=== PATIENT | male | born 1955 | race Caucasian/White ===

== ENCOUNTER 2016-09-20 18:42 | Observation (INO) | payer BC ==
[~2016-09-20] VITALS: Ht 188 cm; Wt 68.0 kg
[~2016-09-20 18:42] MED LIST: BACTRIM DS1 TAB PO; DILAUDID4 MG PO; KEFLEX500 MG PO; NAPROSYN500 MG PO; NAPROXEN375 MG PO; NO; [UNRECOGNIZED DRUG - OTHER] PO
[2016-09-20 19:21] LABS: HEMATOCRIT 43.2 % (39.0-50.0); HEMOGLOBIN 14.5 g/dl (14.0-18.0); IMMATURE GRANULOCYTES 0.2 % (0.0-1.0); MEAN CELL VOLUME 93.9 fL CALC (80.0-100.0); MEAN CORPUSCULAR HGB 31.5 pG CALC (26.0-32.0); MEAN CORPUSCULAR HGB CONC 33.6 g/L CALC (32.0-36.0); NEUT# 5.65 thou/uL (1.82-7.42); RED BLOOD COUNT 4.6 mill/uL (4.70-6.10); RED CELL DISTRI WIDTH 13.1 % (11.5-15.5)
[2016-09-20 19:28] LABS: ALBUMIN 4.6 g/dL (3.2-5.0); ALKALINE PHOSPHATASE 80 u/l (38-126); ANION GAP 14 (6-22 (CALC)); BILIRUBIN, TOTAL 0.4 mg/dL (0.0-1.4); BUN 21 mg/dL (8-23); BUN/CREATININE RATIO 25 (12-20 (CALC)); CALCIUM 9.6 mg/dL (8.4-10.2); CARBON DIOXIDE 31 mmol/l (22-30); CHLORIDE 103 mmol/l (95-108); CREATININE 0.9 mg/dL (0.7-1.3); GFR > 60 ML/MIN (>=60 (CALC)); GFR FOR AFR.AMER. > 60 ML/MIN (>=60 (CALC)); GLUCOSE 86 mg/dL (82-115); POTASSIUM 4.1 mmol/l (3.5-5.1); SGOT/AST 23 u/l (19-48); SGPT/ALT 34 u/l (11-66); SODIUM 144 mmol/l (137-146); TOTAL PROTEIN 7.6 g/dL (6.3-8.2)
[2016-09-20 19:40] LABS: MYOGLOBIN 32 ng/mL (0 - 121)
[2016-09-20 20:37] LABS: URINE BILIRUBIN - DIPSTICK NEGATIVE (NEGATIVE); URINE BLOOD DIPSTICK SMALL (NEGATIVE); URINE CLARITY CLEAR; URINE COLOR YELLOW; URINE GLUCOSE - DIPSTICK NEGATIVE (NEGATIVE); URINE KETONE NEGATIVE (NEGATIVE); URINE LEUK ESTERASE NEGATIVE (NEGATIVE); URINE NITRITE - DIPSTICK NEGATIVE (Negative); URINE PROTEIN - DIPSTICK NEGATIVE (NEG-TRACE); URINE SPECIFIC GRAVITY 1.015; URINE UROBILINOGEN - DIPSTICK 0.2 E.U./dL (0.2)
[2016-09-20 21:30] LABS: URINE SQUAMOUS EPITHELIAL CELL FEW EPI/hpf (0-FEW)
[2016-09-20 22:30] VITALS: BP 136/77
[2016-09-21 03:20] VITALS: BP 95/54
[2016-09-21 09:18] VITALS: BP 138/81
== END 2016-09-21 13:25 | disposition home or self-care (01) | DRG 313 ==
LOC: ENPENDDIS → ED 18:42 → ED-I 20:10 → ED 21:24 → MS2 21:25
PROVIDERS: Emergency Medicine; ADMIT Internal Medicine; ATTEND Internal Medicine
DX: R07.89 Other chest pain (principal); F17.210 Nicotine dependence, cigarettes, uncomplicated; G44.89 Other headache syndrome; Z82.49 Family history of ischemic heart disease and other diseases of the circulatory system
CPT/HCPCS: G0378

== ENCOUNTER → 2018-08-17 | Outpatient (REF) | payer MEDICARE ==
[2018-08-17 14:38] LABS: CREATININE 0.8 mg/dL (0.7-1.3)
== END | disposition home or self-care (01) ==
LOC: CT 13:51
PROVIDERS: ATTEND Otolaryngology
DX: C07 Malignant neoplasm of parotid gland (principal); N17.8 Other acute kidney failure

== ENCOUNTER 2019-04-15 08:03 | Emergency (ER) | payer MEDICARE ==
[~2019-04-15] VITALS: Ht 188 cm; Wt 60.6 kg
[2019-04-15] MEDS ORDERED: AMOXICILLIN/CL875 MG PO (08:26)
[2019-04-15] MEDS ORDERED: AMOCLAN400 MG/5 M PO (08:41)
[2019-04-15 08:45] VITALS: BP 119/86
== END 2019-04-15 08:43 | disposition home or self-care (01) ==
LOC: ED 08:03
DX: L03.114 Cellulitis of left upper limb (principal); S60.512A Abrasion of left hand, initial encounter; W54.8XXA Other contact with dog, initial encounter

== ENCOUNTER 2019-04-16 09:09 | Emergency (ER) | payer MEDICARE ==
[~2019-04-16] VITALS: Ht 188 cm; Wt 70.0 kg
[~2019-04-16 09:09] MED LIST changes: +AMOCLAN400 MG/5 M PO; +AMOXICILLIN/CL875 MG PO
[2019-04-16 09:48] VITALS: BP 122/68
== END 2019-04-16 09:52 | disposition home or self-care (01) ==
LOC: ED 09:09
DX: S60.512D Abrasion of left hand, subsequent encounter (principal); W54.8XXD Other contact with dog, subsequent encounter

== ENCOUNTER 2019-05-31 10:50 | Observation (INO) | payer MEDICARE ==
[~2019-05-31] VITALS: Ht 185.4 cm; Wt 63.0 kg
[~2019-05-31 10:50] MED LIST changes: +AMOX/K CLAV875 M1 PO; +AMOXICILLIN PO; +CLA PO
--- NOTE | 2019-05-31 11:18 | NUR ---
PATIENT TO ROM VIA WHEELCHAIR AND PRACTIONER NOTIFIED OF PATIENT STATUS
[2019-05-31 11:40] LABS: HEMATOCRIT 38.4 % (39.0-50.0); HEMOGLOBIN 12.6 g/dl (14.0-18.0); IMMATURE GRANULOCYTES 0.3 % (0.0-5.0); MEAN CORPUSCULAR HGB 33.7 pG CALC (26.0-32.0); MEAN CORPUSCULAR HGB CONC 32.8 g/L CALC (32.0-36.0); NEUT# 7.93 thou/uL (1.82-7.42); RED BLOOD COUNT 3.74 mill/uL (4.70-6.10)
[2019-05-31 11:44] LABS: MEAN CELL VOLUME 102.7 fL CALC (80.0-100.0)
--- NOTE | 2019-05-31 12:00 | NUR ---
PT RESTING COMFORTABLY ON O2@2LPM VIA NC, RESP EVEN AND UNLABORED AT THIS TIME. DRY COUGH NOTED. AT BEDSIDE. UPDATED ON POC AND WAIT TIME.
[2019-05-31 12:57] LABS: ALBUMIN 4.2 g/dL (3.2-5.0); ALKALINE PHOSPHATASE 81 u/l (38-126); BUN 16 mg/dL (8-23); BUN/CREATININE RATIO 20 (12-20 (CALC)); CHLORIDE 104 mmol/l (95-108); CREATININE 0.8 mg/dL (0.7-1.3); GFR > 60 ML/MIN (>=60 (CALC)); GFR FOR AFR.AMER. > 60 ML/MIN (>=60 (CALC)); POTASSIUM 4.1 mmol/l (3.5-5.1); SGOT/AST 16 u/l (19-48); SODIUM 140 mmol/l (137-146); TOTAL PROTEIN 7.4 g/dL (6.3-8.2)
[2019-05-31 13:01] LABS: ANION GAP 17 (6-22 (CALC)); BILIRUBIN, TOTAL 0.7 mg/dL (0.0-1.4); CARBON DIOXIDE 23 mmol/l (22-30)
--- NOTE | 2019-05-31 13:18 | NUR ---
DR DAUGHERTY AT BEDSIDE TO DISCUSS CLINICAL FINDINGS AND ADMIT. PT IN NO DISTRESS, STATES "I FEEL SO MUCH BETTER".
--- NOTE | 2019-05-31 13:58 | NUR ---
INITIATED IV FLUIDS AND ABT ORDERED. PT AWARE OF ADMIT AND AGREEABLE. RESP EVEN AND UNLABORED AT THIS TIME. O2@2LPM VIA NC, O2 SAT 98%
[2019-05-31 14:00] LABS: URINE BLOOD DIPSTICK LARGE (NEGATIVE); URINE GLUCOSE - DIPSTICK NEGATIVE (NEGATIVE); URINE KETONE 15 mg/dL (NEGATIVE); URINE LEUK ESTERASE NEGATIVE (NEGATIVE); URINE NITRITE - DIPSTICK NEGATIVE (Negative); URINE PH 5.5 (4.5-8.0); URINE PROTEIN - DIPSTICK TRACE mg/dL (NEG-TRACE); URINE SPECIFIC GRAVITY 1.025
[2019-05-31 14:01] LABS: URINE BILIRUBIN - DIPSTICK SMALL (NEGATIVE); URINE COLOR DK. YELLOW; URINE EPITHELIAL CELLS FEW EPI/hpf (0-FEW)
--- NOTE | 2019-05-31 14:38 | NUR ---
PT TOELRATING IV FLUIDS WELL. PT RESTING COMFORTABLY. CONSUMED 75% OF LUNCH TRAY
--- NOTE | 2019-05-31 15:30 | NUR ---
Reassessment of patient completed. No distress noted. Call altamirano within reach. Denies any needs at this time
--- NOTE | 2019-05-31 16:08 | NUR ---
PT ARRIVED TO MED/SURG ROOM 273 IN STABLE CONDITION VIA WHEELCHAIR ACCOMPANIED BY CATHERINE AGUILLON;PT AMBULATED WITH A STEADY GAIT TO STANDING SCALE AND BEDSIDE;WT AND VS OBTAINED BY FORD BATES;PT A&O X3, ORIENTED TO ROOM AND CALL LIGHT SYSTEM;PT REPORTS SOB AND FLU LIKE SYMPTOMS FOR THE PAST 10 DAYS;PT DENIES ANY CURRENT PAIN OR DISCOMFORTS,PAIN SCALE AND REPORTING EDUCATED;RESPIRATIONS EVEN AND UNLABORED,SHALLOW ON O2 @ 2L VIA NC-PT IS NOT HOME DEPENDENT;DIMINISHED LUNG SOUNDS,NON-PRODUCTIVE COUGH NOTED AT TIMES;ABDOMEN SOFT ON PALPATION AND ACTIVE IN ALL 4 QUADRANTS,LAST BM 05/31/19;STRONG PEDAL PULSES;SKIN INTACT BUT FRAGILE;#18G TO RAC FLUSHED AND PATENT,NS TO BE STARTED @ 100ML/HR PER ORDER;TELE MONITORING IN PLACE;FALL AND ALLERGY BAND APPLIED TO LEFT ARM;PT DENIES ANY ADDITIONAL NEEDS AT THIS TIME AND IS ENCOURAGED TO CALL FOR ASSISTANCE IF NEEDED;FALL PRECAUTIONS IN PLACE WITH BED IN THE LOWEST POSITION AND CALL LIGHT IN REACH;WILL CONTINUE TO MONITOR
[2019-05-31 16:15] VITALS: BP 153/86
--- NOTE | 2019-05-31 16:20 | NUR ---
Admission Note Report Given to: sbar printed to floor Transported by: Wheelchair x Stretcher Transported with: x Nurse Transporter x Patent IV O2 x Body Worker
--- NOTE | 2019-05-31 17:57 | NUR ---
PT RESTING IN BED EATING DINNER;RESPIRATIONS EVEN AND UNLABORED ON O2 @ 2L VIA NC;PT DEMONSTRATING USAGE OF I.S. 10X PER HOUR;PT DENIES ANY PAIN OR NEEDS;TELE MONITORING IN PLACE;IV SITE INFUSING NS PER ORDER;ENCOURAGED TO CALL FOR ASSISTANCE IF NEEDED;CALL LIGHT IN REACH;WILL CONTINUE TO MONITOR
--- NOTE | 2019-05-31 19:00 | NUR ---
RECEIVED REPORT FROM NURSE RAJEEV, PATIENT SITTING IN BED, WITH SHALLOW, UNLABORED BREATHING, CALL LIGHT AT REACH.
[2019-05-31 19:19] VITALS: BP 134/77
--- NOTE | 2019-05-31 21:00 | NUR ---
PATIENT ALERT AND ORIENTED, AMBULATORY, WITH AN ONGOING IV OF NORMAL SALINE @ 100CC/HR INFUSING WELL ON RAC, REMAINS ON TELE SR WITH IVCD 69 PAC'S, C/O OF PAIN ON MID BACK RELIEVES WITH REPOSITIONING AND AMBULATING, CALL LIGHT AT REACH.
--- NOTE | 2019-05-31 21:52 | NUR ---
SPOKE TO DR. WONG ABOUT PATIENT REQUEST FOR PAIN MEDICATION WITH ORDERS MADE.
--- NOTE | 2019-06-01 00:18 | NUR ---
PATIENT RESTING IN BED WITH EYES CLOSED, EVEN UNLABORED BREATHING AT THIS TIME CALL LIGHT AT REACH.
[2019-06-01 00:20] VITALS: BP 115/63
--- NOTE | 2019-06-01 03:37 | NUR ---
PATIENT APPEARS TO BE SLEEPING WITH EYES CLOSED WITH EVEN UNLABORED BREATHING CALL LIGHT WITHIN REACH.
[2019-06-01 04:30] VITALS: BP 145/72
[2019-06-01 05:06] LABS: HEMATOCRIT 32.9 % (39.0-50.0); IMMATURE GRANULOCYTES 0.7 % (0.0-5.0); MEAN CELL VOLUME 101.9 fL CALC (80.0-100.0); MEAN CORPUSCULAR HGB 34.1 pG CALC (26.0-32.0); MEAN CORPUSCULAR HGB CONC 33.4 g/L CALC (32.0-36.0); NEUT# 7.41 thou/uL (1.82-7.42); RED BLOOD COUNT 3.23 mill/uL (4.70-6.10); RED CELL DISTRI WIDTH 12.4 % (11.5-15.5)
[2019-06-01 05:11] LABS: ANION GAP 13 (6-22 (CALC)); BUN 19 mg/dL (8-23); BUN/CREATININE RATIO 29 (12-20 (CALC)); CARBON DIOXIDE 22 mmol/l (22-30); CHLORIDE 108 mmol/l (95-108); CREATININE 0.7 mg/dL (0.7-1.3); GFR > 60 ML/MIN (>=60 (CALC)); GFR FOR AFR.AMER. > 60 ML/MIN (>=60 (CALC)); MAGNESIUM 1.7 mg/dL (1.6-2.3); POTASSIUM 4.2 mmol/l (3.5-5.1); SODIUM 139 mmol/l (137-146)
--- NOTE | 2019-06-01 06:55 | NUR ---
REPORT RECEIVED FROM CATHERINE GUTHRIE;PT RESTING IN SEMI FOWLERS POSITION TALKING ON THE PHONE;INTRODUCED SELF TO PT AND POC DISCUSSED;RESPIRATIONS APPEAR EVEN AND UNLABORED ON O2 @ 2L VIA NC;PT DENIES ANY CURRENT PAIN OR NEEDS;TELE MONITORING IN PLACE;IV FLUIDS INFUSING WITH EASE PER ORDER;ENCOURAGED PT TO CALL FOR ASSISTANCE IF NEEDED;FALL PRECAUTIONS IN PLACE WITH BED IN THE LOWEST POSITION AND CALL LIGHT IN REACH;WILL CONTINUE TO MONITOR
--- NOTE | 2019-06-01 08:10 | NUR ---
PT RESTING IN SEMI FOWLERS POSITION,A&O X3;VS OBTAINED AND ASSESSMENT COMPLETED;PT DENIES ANY CURRENT PAIN OR DISCOMFORTS,PAIN SCALE AND REPORTING EDUCATED;RESPIRATIONS EVEN AND UNLABORED ON RA,PRN O2 @ 2L AT BEDSIDE;O2 SATS 94% ON RA,DIMINISHED LUNG SOUNDS AND NON-PRODUCTIVE COUGH NOTED;PT INSTRUCTED ON I.S. USE AND DEMONSTRATED UNDERSTANDING,GOAL SET TO 1999; ABDOMEN SOFT ON PALPATION AND ACTIVE IN ALL 4 QUADRANTS;STRONG PEDAL PULSES;SKIN INTACT BUT FRAGILE;TELE MONITORING IN PLACE;#18G TO RAC INFUSING NS @ 100ML/HR,SITE APPEARS HEALTHY AND ABX HUNG AT THIS TIME;PT DENIES ANY ADDITIONAL NEEDS AND IS ENCOURAGED TO CALL FOR ASSISTANCE IF NEEDED;FALL PRECAUTIONS IN PLACE WITH CALL LIGHT IN REACH;WILL CONTINUE TO MONITOR
[2019-06-01 08:11] VITALS: BP 146/88
--- NOTE | 2019-06-01 10:15 | NUR ---
BERLIN,ANRP AT BEDSIDE
[2019-06-01 11:26] VITALS: BP 134/79
--- NOTE | 2019-06-01 11:29 | NUR ---
AT BEDSIDE DISCUSSING POC WITH PATIENT INCLUDING POTENTIAL D/C HOME;MCKENZIE SLADE ALSO AT BEDSIDE.
[2019-06-01] MEDS ORDERED: ZITHROMAX500 MG PO (11:39)
[2019-06-01] MEDS ORDERED: PREDNISONE10 MG PO (11:39)
--- NOTE | 2019-06-01 12:15 | NUR ---
PT RESTING IN SEMI FOWLERS POSITION EATING LUNCH;RESPIRATIONS EVEN AND UNLABORED ON RA;PT DENIES ANY CURRENT PAIN OR DISCOMFORTS;TELE MONITORING IN PLACE;PT UNDERSTANDS PLAN TO D/C HOME;ENCOURAGED TO CALL FOR ASSISTANCE IF NEEDED;CALL LIGHT IN REACH;WILL CONTINUE TO MONITOR
--- NOTE | 2019-06-01 12:40 | NUR ---
ALL DISCHARGE INSTRUCTIONS PROVIDED AT THIS TIME;PT ENCOURAGED TO TAKE MEDICATIONS DIRECTED.RX FOR PREDNISIONE AND ZITHROMAX SENT TO PHARMACY;PT INSTRUCTED TO RETURN TO [facility] IF S/S WORSEN AND FOLLOW UP WITH PCP;PT DENIES ANY ADDITIONAL QUESTIONS OR NEEDS;IV SITE REMOVED WITH CATHETER INTACT AND TELE MONITORING D/C;PT REFUSES WHEELCHAIR FOR D/C HOME;AWAITING SPOUSE FOR TRANSPORTATION HOME.
--- NOTE | 2019-06-01 12:55 | NUR ---
Discharge instructions given. Patient verbalizes understanding of same. Discharged in stable condition via Ambulatory to Home with spouse. All belongings sent with pt. PT AMBULATED WITH A STEADY GAIT TO LOBBY FOR D/C HOME;PT REFUSED WHEELCHAIR FOR DISCHARGE;ACCOMPANIED BY SPOUSE FOR TRANSPORTATION.
== END 2019-06-01 12:55 | disposition home or self-care (01) ==
LOC: ED 10:50 → ED-I 13:30 → ED 14:16 → MS2 14:17
PROVIDERS: Nurse Practitioner Family; ADMIT Internal Medicine; ATTEND Internal Medicine
DX: J44.1 Chronic obstructive pulmonary disease with (acute) exacerbation (principal); J44.0 Chronic obstructive pulmonary disease with (acute) lower respiratory infection; J20.9 Acute bronchitis, unspecified; R09.02 Hypoxemia; C07 Malignant neoplasm of parotid gland; Z85.118 Personal history of other malignant neoplasm of bronchus and lung; Z92.3 Personal history of irradiation; Z92.21 Personal history of antineoplastic chemotherapy; Z87.891 Personal history of nicotine dependence; Z90.2 Acquired absence of lung [part of]
CPT/HCPCS: G0378; J1650

== ENCOUNTER 2022-10-02 17:51 | Inpatient (IN) | payer MEDICARE ==
[~2022-10-02] VITALS: Ht 185.4 cm; Wt 60.6 kg
[~2022-10-02 17:51] MED LIST changes: +PREDNISONE10 MG PO; +ZITHROMAX500 MG PO
--- NOTE | 2022-10-02 18:08 | NUR ---
PT ARRIVED TO ER WITH CC OF SOB, UPON ARRIVAL PATIENT O2 SATING AT 84% ON ROOMAIR. PT DENIES CHEST PAIN, REPORTS BEEN FEELING SICK. AT SIDE, PT SURRENTLY UNDERGOING CANCER TREATMENT AT THE [facility]. PT A/OX4 CALM AND COOPERATIVE. EKG COMPLETED. MD AT BEDSIDE. RT AT BEDSIDE OBTAINING ABG. PT PLACED ON 2LNC O2 SATURTION IMPROVED TO 91%. FALL AND SAFETY PRECAUTIONS IN PLACE. CALL LIGHT WITHIN REACH.
[2022-10-02 18:29] LABS: BASO% 0.3 % (0-3); EOS% 0.6 % (0-8); HEMATOCRIT 44.1 % (39.0-50.0); HEMOGLOBIN 14.6 g/dl (14.0-18.0); IMMATURE GRANULOCYTES 0.1 % (0.0-5.0); LYMPH% 12.1 % (15-41); MEAN CORPUSCULAR HGB 31.5 pG CALC (26.0-32.0); MEAN CORPUSCULAR HGB CONC 33.1 g/dL CAL (32.0-36.0); NEUT# 5.36 thou/uL (1.82-7.42); NEUT% 76.9 % (42-76); RED BLOOD COUNT 4.64 mill/uL (4.70-6.10); RED CELL DISTRI WIDTH 12.9 % (11.5-15.5)
[2022-10-02 18:31] VITALS: BP 160/86
--- NOTE | 2022-10-02 18:36 | NUR ---
PT VURRENTLY RECEIVING BREATHING TREATMENT, VSS, PT TOLERATING THERAPY WELL. SATING AT 94 %
[2022-10-02] MEDS ORDERED: ZITHROMAX250 MG PO (18:46)
[2022-10-02 18:47] LABS: ALBUMIN 3.9 g/dL (3.2-5.0); ALKALINE PHOSPHATASE 65 u/l (38-126); ANION GAP 11 (6-22 (CALC)); BUN 23 mg/dL (8-23); BUN/CREATININE RATIO 27 (12-20 (CALC)); CARBON DIOXIDE 25 mmol/l (22-30); CHLORIDE 104 mmol/l (95-108); CREATININE 0.8 mg/dL (0.7-1.3); GFR FOR AFR.AMER. > 60 ML/MIN (>=60 (CALC)); GFR OTHER RACES > 60 ML/MIN (>=60 (CALC)); SGOT/AST 30 u/l (19-48); SODIUM 136 mmol/l (137-146); TOTAL PROTEIN 7.4 g/dL (6.3-8.2)
[2022-10-02 18:48] LABS: BILIRUBIN, TOTAL 0.7 mg/dL (0.2-1.3)
[2022-10-02 19:00] VITALS: BP 161/95
[2022-10-02 19:30] VITALS: BP 129/103
[2022-10-02 20:08] VITALS: BP 142/76
--- NOTE | 2022-10-02 20:08 | NUR ---
REPORT GIVEN TO EVE. PT W/C TO ROOM 279
--- NOTE | 2022-10-02 20:38 | NUR ---
PT BROUGHT UP FROM ER VIA WHEELCHAIR @195. PT IS A/OX3, AMBULATES WITH STEADY GAIT TO BED. PT STATES THEY ARE CONTINENT OF BOWEL AND BLADDER, ENCOURAGED TO USE CALL LIGHT OR URINAL AT BEDSIDE. PT DENIES ANY PAIN AT THIS TIME. ASSESSMENT COMPLETED, SKIN INTACT, PT O2 SATURATION AT 92% ON ROOM AIR. LUNG SOUNDS ARE DIMINISHED THROUGH OUT WITH SOME COARENESS IN THE ANTERIOR UPPER LOBE ON RT SIDE. IV SITE APPEARS HEALTHY AND INTACT. EDUCATED PT ON PLAN OF CARE, MEDICATIONS SCHEDULE AND BREATHING TREATMENTS. INDICATED UNDERSTANDING. CALL LIGHT WITHIN REACH AND SAFETY PRECAUTIONS IN PLACE.
--- NOTE | 2022-10-03 00:03 | NUR ---
PT LAYING IN BED ON RT SIDE, SLEEPING COMFORTABLY. NO S/S OF DISTRESS AT THIS TIME. CALL LIGHT WITHIN REACH AND SAFETY PRECAUTIONS IN PLACE.
--- NOTE | 2022-10-03 04:00 | NUR ---
PT LAYING IN BED,, SLEEPING COMFORTABLY AT THIS TIME. CALL LIGHT WITHIN REACH AND SAFETY PRECAUTIONS IN PLACE.
[2022-10-03 04:40] VITALS: BP 142/80
[2022-10-03 05:28] LABS: BASO% 0.1 % (0-3); HEMATOCRIT 40.5 % (39.0-50.0); HEMOGLOBIN 13.6 g/dl (14.0-18.0); IMMATURE GRANULOCYTES 0.3 % (0.0-5.0); LYMPH% 2.5 % (15-41); MEAN CELL VOLUME 95.3 fL CALC (80.0-100.0); MEAN CORPUSCULAR HGB CONC 33.6 g/dL CAL (32.0-36.0); MONO% 2.4 % (2-13); NEUT# 8.23 thou/uL (1.82-7.42); NEUT% 94.7 % (42-76); RED BLOOD COUNT 4.25 mill/uL (4.70-6.10); RED CELL DISTRI WIDTH 12.9 % (11.5-15.5)
[2022-10-03 05:47] LABS: ALBUMIN 3.6 g/dL (3.2-5.0); ALKALINE PHOSPHATASE 65 u/l (38-126); ANION GAP 10 (6-22 (CALC)); BILIRUBIN, TOTAL 0.3 mg/dL (0.2-1.3); BUN 18 mg/dL (8-23); BUN/CREATININE RATIO 26 (12-20 (CALC)); CARBON DIOXIDE 29 mmol/l (22-30); CHLORIDE 102 mmol/l (95-108); CREATININE 0.7 mg/dL (0.7-1.3); GFR FOR AFR.AMER. > 60 ML/MIN (>=60 (CALC)); GFR OTHER RACES > 60 ML/MIN (>=60 (CALC)); MAGNESIUM 1.8 mg/dL (1.6-2.3); POTASSIUM 3.9 mmol/l (3.5-5.1); SGOT/AST 24 u/l (19-48); SODIUM 137 mmol/l (137-146); TOTAL PROTEIN 6.5 g/dL (6.3-8.2)
[2022-10-03 07:31] VITALS: BP 174/96
--- NOTE | 2022-10-03 08:00 | NUR ---
PT RESTING IN SEMI FOWLERS POSITION. A/OX3 HARD OF HEARING ASSESSMENT AND VS COMPLETED. HEART RHYHTM NORM. RESPIRAITONS ON 2LNC PT STATES USES FOR COMFORT. IV SITE NOTED NS INFUSING PT DENIES ADDITIONAL NEEDS AT THE TIME ALL SAFETY PRECAUTIONS IN PLACE.
[2022-10-03 08:26] VITALS: BP 150/84
--- NOTE | 2022-10-03 08:30 | NUR ---
PT SBP ELEVATED ABOVE 170. ASKED PT IF PT TAKES ANYTHING AT HOME FOR BLOOD PRESSURE PT DENIED. LESTER WINSTONI INFORMED NEW ORDER IN EMAR. PT BP REASSESSED .
--- NOTE | 2022-10-03 11:57 | NUR ---
PT RESTING IN HIGH FOWLERS POSITION. PT ABX FINISHED. PT LOCKED OFF FLUIDS FOR NOW. PT STATED WOULD LIKE TO GET IN SHOWER AFTER EATING LUNCH. ALL SAFETY PRECAUTIONS IN PLACE.
--- NOTE | 2022-10-03 15:58 | NUR ---
PT RESTING IN HIGH FOWLERS POSITION. PT CONCEREND OF FLUIDS NOT RUNNING PT EDUCATED ON FLUID RATE SLOWER THAN USUAL RATE AND PT EDUCATED THAT PT WAS OFF FLUIDS SO NOT MUCH HAS COME DOWN. PT CONCERENED OF O2 SAT PT SATING ABOVE 92%
[2022-10-03 16:19] VITALS: BP 131/71
[2022-10-03 19:50] VITALS: BP 170/82
--- NOTE | 2022-10-03 20:00 | NUR ---
RECEIVED REPORT FROM DAYSHIFT NURSE. PT SITTING UP ON THE SIDE OF BED AT THIS TIME. A/OX3. PRODUCTIVE COUGH PRESENT. PT DENIES ANY PAIN BUT REQUESTED BREATHING TREATMENT. EDUCATED ON PLAN OF CARE FOR TONIGHT. CALL LIGHT WITHIN REACH AND SAFETY PRECAUTIONS IN PLACE.
--- NOTE | 2022-10-04 00:10 | NUR ---
PT LAYING SUPINE IN BED, RESTING COMFORTABLY. NO S/S OF DISTRESS AT THIS TIME. CALL LIGHT WITHIN REACH AND SAFETY PRECAUTIONS IN PLACE.
[2022-10-04 04:08] VITALS: BP 151/78
--- NOTE | 2022-10-04 04:20 | NUR ---
PT IS LAYING SUPINE IN BED, O2 IN PLACE AT THIS TIME. PT RESTING COMFORTABLY. CALL LIGHT WITHIN REACH AND SAFETY PRECAUTIONS IN PLACE.
[2022-10-04 05:28] LABS: BASO% 0.1 % (0-3); HEMATOCRIT 39.7 % (39.0-50.0); HEMOGLOBIN 13.2 g/dl (14.0-18.0); LYMPH% 4.3 % (15-41); MEAN CELL VOLUME 95.7 fL CALC (80.0-100.0); MEAN CORPUSCULAR HGB 31.8 pG CALC (26.0-32.0); MEAN CORPUSCULAR HGB CONC 33.2 g/dL CAL (32.0-36.0); MONO% 2.9 % (2-13); NEUT# 9.67 thou/uL (1.82-7.42); NEUT% 91.7 % (42-76); RED BLOOD COUNT 4.15 mill/uL (4.70-6.10); RED CELL DISTRI WIDTH 12.9 % (11.5-15.5)
[2022-10-04 05:56] LABS: ALBUMIN 3.6 g/dL (3.2-5.0); ALKALINE PHOSPHATASE 69 u/l (38-126); BUN 30 mg/dL (8-23); BUN/CREATININE RATIO 35 (12-20 (CALC)); CARBON DIOXIDE 27 mmol/l (22-30); CHLORIDE 106 mmol/l (95-108); CREATININE 0.9 mg/dL (0.7-1.3); GFR FOR AFR.AMER. > 60 ML/MIN (>=60 (CALC)); GFR OTHER RACES > 60 ML/MIN (>=60 (CALC)); MAGNESIUM 1.9 mg/dL (1.6-2.3); SGOT/AST 34 u/l (19-48); SODIUM 142 mmol/l (137-146)
[2022-10-04 05:57] LABS: ANION GAP 14 (6-22 (CALC)); BILIRUBIN, TOTAL 0.1 mg/dL (0.2-1.3); POTASSIUM 5.4 mmol/l (3.5-5.1)
[2022-10-04 06:53] VITALS: BP 170/73
--- NOTE | 2022-10-04 08:00 | NUR ---
GOT REPORT FROM [employer] SUPERVISOR NURSE. PATIENT ASSESSED, AOX3. PATIENT DENIES ANY DISTRESS OR DISCOMFORT. PATIENT HAS FALL PRECAUTIONS IN PLACE AND HAS CALL LIGHT AND BEDSIDE TABLE WITH IN REACH. ADVISED TO CALL IF NEEDING ANYTHING. PATIENT VERBALIZED UNDERSTANDING.
[2022-10-04 09:24] VITALS: BP 143/78
--- NOTE | 2022-10-04 11:13 | NUR ---
PRELIMINARY CULTURE RESULTS CALLED TO KIEL BATISTA. NO NEW ORDERS AT THIS TIME.
--- NOTE | 2022-10-04 12:00 | NUR ---
PATIENT IN BED WATCHING TV. DENIES AND ISSUES. FALL PRECAUTIONS ARE STILL IN PLACE. CALL LIGHT AND BEDSIDE [place]ALE WITH IN REACH. ADVISED TO CALL IF NEEDING ANYTHING. PATIENT VERBALIZED UNDERSTANDING.
[2022-10-04 15:35] VITALS: BP 139/68
[2022-10-04 18:52] VITALS: BP 154/65
[2022-10-04 19:47] VITALS: BP 154/65
--- NOTE | 2022-10-04 23:25 | NUR ---
pt alert and oriented. sitting up in bed watching tv. 02 via n/c. c/o constipation. MOM given at hs. call light in reach.
[2022-10-05 06:44] VITALS: BP 147/118
--- NOTE | 2022-10-05 09:00 | NUR ---
PATIENT WAS WASHING UP WHEN NURSE ENTER ROOM. PATIENT STATED FEELING BETTER TODAY. PATIENT HAVING A PRODUCTIVE COUGH SMALL THICK CLEAR SPUTUM. PATIENT ON 2L NC. PATIENT RETURNED TO BED. ASSESSMENT DONE. CALL LIGHT WITHIN REACH. WILL CONTINUE TO MONITOR.
[2022-10-05 10:09] LABS: ALBUMIN 3.9 g/dL (3.2-5.0); ALKALINE PHOSPHATASE 75 u/l (38-126); ANION GAP 12 (6-22 (CALC)); BILIRUBIN, TOTAL 0.2 mg/dL (0.2-1.3); BUN 29 mg/dL (8-23); BUN/CREATININE RATIO 36 (12-20 (CALC)); CARBON DIOXIDE 29 mmol/l (22-30); CHLORIDE 104 mmol/l (95-108); CREATININE 0.8 mg/dL (0.7-1.3); GFR FOR AFR.AMER. > 60 ML/MIN (>=60 (CALC)); GFR OTHER RACES > 60 ML/MIN (>=60 (CALC)); MAGNESIUM 2.1 mg/dL (1.6-2.3); POTASSIUM 4.4 mmol/l (3.5-5.1); SGOT/AST 97 u/l (19-48); SODIUM 140 mmol/l (137-146); TOTAL PROTEIN 6.9 g/dL (6.3-8.2)
[2022-10-05 10:37] LABS: BASO% 0.1 % (0-3); HEMATOCRIT 43.1 % (39.0-50.0); HEMOGLOBIN 13.6 g/dl (14.0-18.0); IMMATURE GRANULOCYTES 0.5 % (0.0-5.0); LYMPH% 4.6 % (15-41); MEAN CELL VOLUME 98.9 fL CALC (80.0-100.0); MEAN CORPUSCULAR HGB 31.2 pG CALC (26.0-32.0); MEAN CORPUSCULAR HGB CONC 31.6 g/dL CAL (32.0-36.0); MONO% 2.5 % (2-13); NEUT# 11.49 thou/uL (1.82-7.42); NEUT% 92.3 % (42-76); RED BLOOD COUNT 4.36 mill/uL (4.70-6.10); RED CELL DISTRI WIDTH 13.4 % (11.5-15.5)
[2022-10-05] MEDS ORDERED: LEVAQUIN750 M1 PO (11:33)
[2022-10-05] MEDS ORDERED: LEXAPRO10 MG PO (11:33)
[2022-10-05] MEDS ORDERED: PREDNISONE10 MG PO (11:35)
[2022-10-05] MEDS ORDERED: ALPRAZOLAM0.25 MG PO (11:35)
--- NOTE | 2022-10-05 12:40 | NUR ---
Discharge instructions given. Patient verbalizes understanding of same. Discharged in stable condition via Ambulatory refused wheelchair to Home with spouse. All belongings sent with pt including home oxygen.
== END 2022-10-05 12:33 | disposition home or self-care (01) | DRG 190 ==
LOC: ED 17:51 → ED-I 19:00 → ED 19:14 → MS2 19:15
PROVIDERS: Family Medicine; Nurse Practitioner Family; ADMIT Internal Medicine; ATTEND Internal Medicine
DX: J43.9 Emphysema, unspecified (principal); J96.01 Acute respiratory failure with hypoxia; F41.9 Anxiety disorder, unspecified; Z85.118 Personal history of other malignant neoplasm of bronchus and lung; Z92.3 Personal history of irradiation; Z92.21 Personal history of antineoplastic chemotherapy; Z85.46 Personal history of malignant neoplasm of prostate; Z87.891 Personal history of nicotine dependence; Z20.822 Contact with and (suspected) exposure to COVID-19

== ENCOUNTER 2022-10-08 12:41 | Emergency (ER) | payer MEDICARE ==
[2022-10-08] VITALS (33 sets, daily range): BP systolic 121–178; BP diastolic 75–126
[~2022-10-08] VITALS: Ht 185.4 cm; Wt 54.0 kg
[~2022-10-08 12:41] MED LIST changes: +ALPRAZOLAM0.25 MG PO; +LEVAQUIN750 M1 PO; +LEXAPRO10 MG PO; +ZITHROMAX250 MG PO
[2022-10-08 13:30] LABS: ALBUMIN 3.9 g/dL (3.2-5.0); ALKALINE PHOSPHATASE 82 u/l (38-126); ANION GAP 10 (6-22 (CALC)); BUN 29 mg/dL (8-23); BUN/CREATININE RATIO 34 (12-20 (CALC)); CARBON DIOXIDE 30 mmol/l (22-30); CHLORIDE 98 mmol/l (95-108); CREATININE 0.9 mg/dL (0.7-1.3); GFR FOR AFR.AMER. > 60 ML/MIN (>=60 (CALC)); GFR OTHER RACES > 60 ML/MIN (>=60 (CALC)); POTASSIUM 4.6 mmol/l (3.5-5.1); SGOT/AST 34 u/l (19-48); SODIUM 134 mmol/l (137-146); TOTAL PROTEIN 6.6 g/dL (6.3-8.2)
[2022-10-08 13:33] LABS: BILIRUBIN, TOTAL 0.4 mg/dL (0.2-1.3)
[2022-10-08 13:34] LABS: BASO% 0.1 % (0-3); HEMATOCRIT 42.4 % (39.0-50.0); HEMOGLOBIN 13.8 g/dl (14.0-18.0); IMMATURE GRANULOCYTES 0.9 % (0.0-5.0); LYMPH% 5.3 % (15-41); MEAN CELL VOLUME 94.9 fL CALC (80.0-100.0); MEAN CORPUSCULAR HGB 30.9 pG CALC (26.0-32.0); MEAN CORPUSCULAR HGB CONC 32.5 g/dL CAL (32.0-36.0); MONO% 1.8 % (2-13); NEUT# 10.3 thou/uL (1.82-7.42); NEUT% 91.9 % (42-76); RED BLOOD COUNT 4.47 mill/uL (4.70-6.10); RED CELL DISTRI WIDTH 12.8 % (11.5-15.5)
[2022-10-08 17:07] LABS: URINE BILIRUBIN - DIPSTICK NEGATIVE (NEGATIVE); URINE BLOOD DIPSTICK SMALL (NEGATIVE); URINE COLOR YELLOW; URINE GLUCOSE - DIPSTICK NEGATIVE (NEGATIVE); URINE KETONE NEGATIVE (NEGATIVE); URINE LEUK ESTERASE NEGATIVE (NEGATIVE); URINE PROTEIN - DIPSTICK NEGATIVE (NEG-TRACE); URINE SPECIFIC GRAVITY >=1.030; URINE UROBILINOGEN - DIPSTICK 0.2 E.U./dL (0.2)
[2022-10-08 17:08] LABS: URINE NITRITE - DIPSTICK NEGATIVE (Negative)
[2022-10-08 17:10] LABS: URINE WBC 0-2 WBC/hpf (0-5)
[2022-10-09] VITALS (12 sets, daily range): BP systolic 138–164; BP diastolic 75–89
== END 2022-10-08 21:04 | disposition short-term general hospital (02) ==
LOC: ED 12:41
PROVIDERS: Family Medicine
DX: R00.1 Bradycardia, unspecified (principal); J96.01 Acute respiratory failure with hypoxia; Z85.118 Personal history of other malignant neoplasm of bronchus and lung; Z85.89 Personal history of malignant neoplasm of other organs and systems; Z92.21 Personal history of antineoplastic chemotherapy; Z92.3 Personal history of irradiation

== ENCOUNTER 2024-05-31 10:55 | Emergency (ER) | payer MEDICARE ==
[~2024-05-31] VITALS: Ht 185.4 cm; Wt 61.6 kg
[~2024-05-31 10:55] MED LIST changes: +B-12; +CALCIUM; +NORVASC PO; +VITAMIN C; +ZINC
[2024-05-31] MEDS ORDERED: BACTRIM DS1 TAB PO (13:45)
[2024-05-31 14:04] VITALS: BP 147/91
== END 2024-05-31 14:02 | disposition home or self-care (01) ==
LOC: ED 10:55
DX: L03.114 Cellulitis of left upper limb (principal)